=== PATIENT | female | born 1960 | race Caucasian/White ===

== ENCOUNTER 2020-11-14 10:41 | Observation (INO) ==
--- NOTE | 2020-11-14 12:40 | Internal Med History&Physical ---
HPI History of Present Illness Patient information: Note initiated : 11/14/20 at 12:38 pm Service Date, if different from initiated Date: [] Patient: Elma Gonsales a 59 y/o F admitted on 11/14/20 for acute kidney injury. Chief Complaint: [] History of present illness: Ms. Gonsales is a 59 year old F Patient was admitted to [facility] for UTI nausea vomiting acute kidney injury. Patient reports onset of nausea vomiting several nights ago with right abdominal pain when to the ED diagnosed with UTI sent home. Came back to the ED with severe right flank pain sharp rating to the groin. She had a CT which showed obstructing stone on the right with hydronephrosis and perinephric edema. She was admitted as the thought that urologist available the next day but they did not. Patient does transfer down to [facility] for Dr. Leal. Patient denies fever but has chills. Review of Systems: Pertinent positives as above. Denies headache/fever/chills/chest pain/cough/dyspnea/diarrhea. Remaining 10 point review of system reviewed negative PFSH PFSH All Active Problems (Updated 10/17/15 @ 14:00 by Matthias Person MD) Fibromyalgia (Chronic) Arthralgia (Chronic) Depression (Chronic) Obstructive sleep apnea (Chronic) Insomnia (Chronic) DM type 2 (diabetes mellitus, type 2) (Chronic) Diarrhea (Chronic) Viral illness (Chronic) Fatigue (Chronic) Medical History (Updated 10/17/15 @ 14:00 by Matthias Person MD) Arthralgia Depression Diarrhea DM type 2 (diabetes mellitus, type 2) Fatigue Fibromyalgia Insomnia Obstructive sleep apnea Viral illness Surgical History (Updated 06/14/20 @ 08:26 by [place]) No pertinent past surgical history Family History (Updated 09/06/15 @ 10:01 by Marycarmen Omalley) Other No pertinent family history MEDS/ALLERGIES Home Medications and Allergies Home Medications Medication Instructions Recorded Confirmed Type atorvastatin 10 mg tablet 10 mg PO QDAY 09/06/15 09/06/15 History blood sugar diagnostic 09/06/15 09/06/15 History bupropion HCl 300 mg 24 hr tablet, 300 mg PO QAM 09/06/15 09/06/15 History extended release desipramine 25 mg tablet 25 mg PO QHS 09/06/15 09/06/15 History fexofenadine 180 mg tablet 180 mg PO QDAY 09/06/15 09/06/15 History insulin human U-100 NPH-regulr 15 unit SUB-Q BID 09/06/15 09/06/15 History 70-30 mix 100 unit/mL subcutaneous susp loratadine 10 mg tablet 10 mg PO QDAY 09/06/15 09/06/15 History metformin 850 mg tablet 850 mg PO BID 09/06/15 09/06/15 History tramadol 50 mg tablet 25 mg PO TID PRN #90 tab 10/17/15 10/17/15 Rx Allergies Allergy/AdvReac Type Severity Reaction Status Date / Time ampicillin Allergy Unknown Hives/Rash Unverified 09/06/15 09:53 aspirin Allergy Unknown Makes nose Unverified 09/06/15 09:53 bleeds worse codeine Allergy Unknown N/V Unverified 09/06/15 09:53 duloxetine Allergy Unknown Confusion Unverified 09/06/15 09:53 gabapentin Allergy Unknown Blurred Unverified 09/06/15 09:53 vision glimepiride Allergy Unknown Itching/Nazario Unverified 09/06/15 09:53 ma lisinopril Allergy Unknown Cough Unverified 09/06/15 09:53 Penicillins Allergy Unknown Hives/Rash Unverified 09/06/15 09:53 prednisone Allergy Unknown Behavioural Unverified 09/06/15 09:53 Disturbances Sulfa (Sulfonamide Allergy Unknown Rash Unverified 09/06/15 09:53 Antibiotics) EXAM Constitutional Exam: General: Alert, Awake, No acute Distress, obesity Eyes/N/T: EOMI, PERRL, Head/Neck: neck supple, normocephalic atraumatic CV: RRR, No murmurs, normal s1/s2 Pulm: Clear b/l, no wheezing/rhonchi/rales Abd: soft, nontender, +BS x4, right flank tenderness to palpation Ext: no clubbing/cyanosis/edema Neuro: Alert, no focal deficits, moves all extremities, CN 2-12 grossly intact, symmetrical strength b/l upper/lower, sensations intact b/l upper/lower Skin: warm/dry A/P Narrative A/P Narrative: A: *Obstructive uropathy w/Right obstructing stone & hydronephrosis *CHARLENE on CKD: 2/2 above *Pyelonephritis: *DM: *Fibromyalgia/depression/anxiety: * P: -Dr. Leal for urology -N.p.o. until procedure -Rocephin pending UC -Basal and SSI -Nurse to clarify and update home medications - -ppx: SCD ambulation Time Spent With Patient Time: Total time spent is greater than 50% in coordination of care (as documented) at patient's floor/unit and/or counseling patient:
[2020-11-14] MEDS ORDERED: DEXTROSE 50% 50 ML VIAL IV PRN (12:58)
[2020-11-14] MEDS ORDERED: IPRATROPIUM/ALBUTEROL 3 ML AMPUL.NEB NEB PRN ×2 (12:58→16:52)
[2020-11-14] MEDS ORDERED: MAGNESIUM SULFATE 2 GM/50 ML BAG IV PRN (12:58)
[2020-11-14] MEDS ORDERED: DEXTROSE 31 GM ORAL.SUSP PO PRN (12:58)
[2020-11-14] MEDS ORDERED: ONDANSETRON 4 MG/2 ML VIAL IV PRN ×2 (12:58→16:52)
[2020-11-14] MEDS ORDERED: METOCLOPRAMIDE 10 MG/2 ML VIAL IV PRN (12:58)
[2020-11-14] MEDS ORDERED: HYDROcodone/APAP 5/325MG TABLET PO PRN (12:58)
[2020-11-14] MEDS ORDERED: POTASSIUM CHLORIDE 20 MEQ TABLET PO PRN ×2 (12:58)
[2020-11-14] MEDS ORDERED: LACTULOSE 20 GM/30 ML ORAL.SOL PO PRN (12:58)
[2020-11-14] MEDS ORDERED: POLYETHYLENE GLYCOL 3350 17 GM PACKET PO PRN (12:58)
[2020-11-14] MEDS ORDERED: POTASSIUM CHLORIDE 40 MEQ in DEXTROSE 5% IN WATER 500 ML IV PRN (12:58)
[2020-11-14] MEDS ORDERED: SENNOSIDES 1 TABLET PO PRN (12:58)
[2020-11-14] MEDS ORDERED: morphine 4 MG/ML VIAL IV PRN (12:58)
[2020-11-14] MEDS ORDERED: 0.9 % SODIUM CHLORIDE 1,000 ML IV SCH (13:00)
[2020-11-14] MEDS ORDERED: cefTRIAXone 1 GM in DEXTROSE 5% IN WATER 50 ML IV SCH (13:00)
[2020-11-14] MEDS: cefTRIAXone 1 GM VIAL IV SCH (13:54)
[2020-11-14] MEDS: 0.9 % SODIUM CHLORIDE 10 ML SYRINGE IV SCH ×2 (14:20→20:48)
--- NOTE | 2020-11-14 14:31 | Urology Consult Note ---
HPI Data of Consult Consult date: 11/14/20 Primary Care Provider: Estefany Camejo MD Consult Narrative Chief complaint: Right flank pain. Reason for consult: Obstructing right renal stone with nonfunctioning left kidney. History of present illness: Elma is a 59-year-old woman who was admitted to [facility] with complaints of urinary tract infection, nausea, emesis and acute urinary injury secondary to an obstructing 9 mm right ureteropelvic junction stone. The patient reports that she has a history of a nonfunctioning left kidney. She is also diabetic. There is no urologist available in [place] and they requested transfer to our hospital for further urologic care. The patient continues to complain of right flank pain and is resting in bed with some discomfort. She reports a history of diabetes mellitus type 2, fibromyalgia, and depression. She has a long history of kidney stones and has had them surgically treated in the past. She has had ureteral stents in the past and reports that these have caused discomfort. She reports that she is allergic to codeine. She is also allergic to penicillin and sulfa medications. cc:: CC: Yoseph Mccullough Review of Systems All systems: reviewed and no additional remarkable complaints except as stated Constitutional Constitutional: Present as per HPI, fatigue and malaise Genitourinary Genitourinary: Present as per HPI and flank pain PFSH PFSH All Active Problems (Updated 11/14/20 @ 14:28 by Michael Leal MD) Solitary right kidney (Acute) Right flank pain (Acute) Hydronephrosis, right (Acute) Renal calculus, right (Acute) Fatigue (Chronic) Viral illness (Chronic) Diarrhea (Chronic) DM type 2 (diabetes mellitus, type 2) (Chronic) Insomnia (Chronic) Obstructive sleep apnea (Chronic) Depression (Chronic) Arthralgia (Chronic) Fibromyalgia (Chronic) Medical History Arthralgia Depression Diarrhea DM type 2 (diabetes mellitus, type 2) Fatigue Fibromyalgia Insomnia Obstructive sleep apnea Viral illness Surgical History No pertinent past surgical history Family History Other No pertinent family history MEDS/ALLERGIES Home Medications and Allergies Home Medications Medication Instructions Recorded Confirmed Type atorvastatin 10 mg tablet 10 mg PO QDAY 09/06/15 11/14/20 History blood sugar diagnostic 09/06/15 09/06/15 History bupropion HCl 300 mg 24 hr tablet, 300 mg PO QAM 09/06/15 09/06/15 History extended release insulin human U-100 NPH-regulr 15 unit SUB-Q BID 09/06/15 09/06/15 History 70-30 mix 100 unit/mL subcutaneous susp metformin 850 mg tablet 850 mg PO DAILY 09/06/15 09/06/15 History tramadol 50 mg tablet 25 mg PO TID PRN #90 tab 10/17/15 10/17/15 Rx Allergies Allergy/AdvReac Type Severity Reaction Status Date / Time Penicillins Allergy Intermediate Other Verified 11/14/20 14:26 Sulfa (Sulfonamide Allergy Unknown Rash Verified 11/14/20 14:26 Antibiotics) prednisone AdvReac Severe Behavioural Verified 11/14/20 14:26 Disturbances codeine AdvReac Intermediate N/V Verified 11/14/20 14:26 glimepiride AdvReac Intermediate Itching/Nazario Unverified 11/14/20 13:06 ma duloxetine AdvReac Mild Confusion Unverified 11/14/20 14:26 gabapentin AdvReac Mild Blurred Unverified 11/14/20 13:06 vision lisinopril AdvReac Mild Cough Unverified 11/14/20 13:06 Physical Examination Vital Signs Vital signs: Temp Pulse Resp BP Pulse Ox 98.2 F 92 H 20 124/75 92 11/14/20 12:58 11/14/20 12:58 11/14/20 12:58 11/14/20 12:58 11/14/20 12:58 General physical appearance General physical exam: well developed, well nourished, moderate pain and obese Eyes Eye exam: PERRL ENT ENT exam: no hearing loss Head Head exam IM: Present atraumatic, normal inspection and normocephalic Neck Neck exam: trachea midline Cardiovascular Cardiovascular exam IM: Present normal rate and rhythm Respiratory Respiratory exam: normal expansion, normal respiratory effort and clear to auscultation Abdomen Abdomen: Present soft and bowel sounds Integumentary Integumentary: Present no rash Neurologic Neurologic: Present normal coordination Psychiatric Psychiatric: Present oriented to time, oriented to person, oriented to place and speech is normal Results Labs Labs: All other labs normal. A/P Assessment and plan (1) Renal calculus, right: Status: Acute (2) Hydronephrosis, right: Status: Acute (3) Right flank pain: Status: Acute (4) Solitary right kidney: Status: Acute Narrative A/P Narrative: Elma is a 59-year-old male with a long history of kidney stones. She was admitted to [facility] with severe right flank pain, nausea, emesis and a CT scan showing an obstructing 9 mm right ureteropelvic junction stone with hydronephrosis. She reports that she has nonfunction of her left kidney making her right kidney her solitary kidney. We discussed that in the presence of a UTI we generally do not treat stones. Instead we simply place a ureteral stent to unblock the kidney, to allow to drain and to help with the severe pain. She understands that a ureteral stent does not treat the stone and may cause irritation such as urinary urgency, frequency and hematuria. She has had stents in the past and understands what stent discomfort can be. We discussed taking her to the operating room today for cystoscopy, right retrograde pyelogram, and right ureteral stent placement. I explained the procedure to the patient as well as its potential risks and complications. Risks include bleeding, infection, damage to the urethra, to the bladder, and to the right ureter and kidney. The risks of postoperative urinary urgency and frequency. The risks of postoperative hematuria she understands that she may have post procedure pain. She understands that placing the stent will not treat the stone and she will need to have the stone treated at a later date once her infection has been cleared. The stent should, however, relieve any of the severe pain that she is currently experiencing including the nausea. Once we placed the stent assuming she is comfortable she can go home with oral pain medication and an oral antibiotic. If she is not comfortable or not able to keep food down we will keep her until she is. She reports that she has an appointment with the urologist in [place] for November 28. It is important that she keep that appointment as they should be able to treat the stone in [place] where she lives. If she would prefer we are always welcome to see her here to schedule her to treat the stone at a later date. She understands that the stent is a temporary device and may remain in place for up to 3 months but not longer without having it removed or exchanged. Her daughter was on the phone for today's consultation. She understands the procedure and the risks and the need for further treatment. A signed consent for was obtained at the bedside today with the nurse present and her daughter on the phone. The plan is to go to the operating for the above procedure this afternoon Time Spent With Patient Time: Total time spent is greater than 50% in coordination of care (as documented) at patient's floor/unit and/or counseling patient:
[2020-11-14] MEDS ORDERED: PROPOFOL 200 MG/20 ML VIAL IV ONE (16:32)
[2020-11-14] MEDS ORDERED: DEXAMETHASONE 10 MG/ML VIAL ONE (16:32)
[2020-11-14] MEDS ORDERED: MIDAZOLAM 2 MG/2 ML VIAL ONE (16:32)
[2020-11-14] MEDS ORDERED: LIDOCAINE HCL/PF 100 MG/5 ML SYRINGE IV ONE (16:32)
[2020-11-14] MEDS ORDERED: fentaNYL 100 MCG/2 ML VIAL IV ONE (16:32)
[2020-11-14] MEDS ORDERED: METHOCARBAMOL 1,000 MG/10 ML VIAL IV PRN (16:52)
[2020-11-14] MEDS ORDERED: PROMETHAZINE 25 MG/ML VIAL IV PRN (16:52)
[2020-11-14] MEDS ORDERED: diphenhydrAMINE 50 MG/ML VIAL IV PRN (16:52)
[2020-11-14] MEDS ORDERED: METOPROLOL TARTRATE 5 MG/5 ML VIAL IV PRN (16:52)
[2020-11-14] MEDS ORDERED: FLUMAZENIL 0.1 MG/ML ML IV PRN (16:52)
[2020-11-14] MEDS ORDERED: ePHEDrine 50 MG/ML AMPUL IV PRN (16:52)
[2020-11-14] MEDS ORDERED: ACETAMINOPHEN 1,000 MG/100 ML BAG IV ONE (16:52)
[2020-11-14] MEDS ORDERED: NALOXONE HCL 0.4 MG/ML VIAL IV PRN (16:52)
[2020-11-14] MEDS ORDERED: fentaNYL 100 MCG/2 ML VIAL IV PRN (16:52)
[2020-11-14] MEDS ORDERED: ATROPINE SULFATE 0.4 MG/ML VIAL IV PRN (16:52)
[2020-11-14] MEDS ORDERED: MEPERIDINE 25 MG/ML VIAL IV PRN (16:52)
[2020-11-14] MEDS ORDERED: LACTATED RINGERS 1,000 ML IV SCH (17:00)
--- NOTE | 2020-11-14 17:01 | Operative Note ---
Brief Operative Note Date of procedure: 11/14/20 Pre-op diagnosis: Right ureteral stone, urinary tract infection, right hydrone phrosis Post-op diagnosis: same Procedure: Cystoscopy, right retrograde pyelogram, and right ureteral stent placement. Grafts/Implants: Yes (6 x 24 cm right ureteral stent with no string.) Anesthesia: GETA Complications: none Surgeon: Michael Leal Estimated blood loss (cc): 0 Specimens Removed/Pathology: none sent Condition: stable Disposition: PACU Operative Note Operative Note: This is a 59-year-old woman with a long history of kidney stones. Currently she has a 9 mm right ureteropelvic junction stone with mild right hydronephrosis, urinary tract infection and a nonfunctioning left kidney. She has severe right flank pain. She is brought to the operating room for cystoscopy, right retrograde pyelogram, and right ureteral stent placement after obtaining informed consent from the patient, she was brought to the operating room was placed upon the operating table. General anesthesia was provided. She was repositioned in a dorsolithotomy position was prepped and draped in usual sterile fashion. Attention was directed to the urethral meatus were 21 Barbadian cystoscope was passed per urethra into the bladder. The bladder was inspected and was seen to be free of tumors and stones. Both right and left orifices were identified in the normal anatomic positions. The right ureteral orifice was cannulated using a 6 Barbadian open and ureteral catheter. A right retrograde pyelogram was performed. This showed no significant hydronephrosis and no ureterectasis. The stone was visualized in the right renal pelvis the open- ended ureteral catheter was removed and the urethra was cannulated on the right using a 0.35 Barbadian Sensor wire. This was easily passed under fluoroscopic guidance into the right upper pole. A 6 x 24 cm ureteral stent with no string was then passed over this wire and under fluoroscopic guidance into the right renal pelvis the wire was removed leaving a good curl in the right renal pelvis and a good curl within the bladder. The bladder was then irrigated and drained. The cystoscope was removed. Lidocaine jelly was placed in the urethra in the bladder. The patient was returned to the supine position. She was awakened and returned to the recovery in stable condition. There were no complications. Blood loss was minimal.
[2020-11-14] MEDS: INSULIN LISPRO 1 UNIT/0.01 ML UNIT SQ SCH ×2 (17:17→20:58)
--- NOTE | 2020-11-14 17:49 | XRay Report ---
HISTORY: FINDINGS: IMPRESSION: 0.5 minutes of fluoroscopy time was used. Interpreted and Authenticated by: Db Ramon 11/14/20
[2020-11-14] MEDS ORDERED: LIDOCAINE 2% URO-JET 5 ML JEL.PF.APP UR ONE (18:21)
[2020-11-14] MEDS ORDERED: IOVERSOL 20 ML VIAL IV ONE (18:21)
--- NOTE | 2020-11-14 19:07 | Discharge Summary ---
Discharge Provider Provider Patient information: Note initiated : 11/14/20 at 7:05 pm Service Date, if different from initiated Date: [] Patient: Elma Gonsales 59 y/o F admitted on 11/14/20 for acute kidney injury. Chief Complaint: [] Date of admission: 11/14/20 12:29 Discharge date: 11/15/20 Primary care physician: Estefany Camejo MD Consults: 11/14/20 Consult to Physician [CONS] Urgent Comment: Consulting Provider: Michael Leal Reason For Exam: Physician to Consult Discharge Meds Discharge Medications Home Medications atorvastatin 10 mg tablet 10 mg PO QDAY 09/06/15 [History Confirmed 11/14/20 Last Taken 11/13/20] blood sugar diagnostic 09/06/15 [History Confirmed 09/06/15 Last Taken Unknown] bupropion HCl 300 mg 24 hr tablet, extended release 300 mg PO QAM 09/06/15 [History Confirmed 11/14/20 Last Taken Unknown] insulin human U-100 NPH-regulr 70-30 mix 100 unit/mL subcutaneous susp 18 unit SUB-Q BID 09/06/15 [History Confirmed 11/14/20 Last Taken Unknown] tramadol 50 mg tablet 25 mg PO TID PRN #90 tab 10/17/15 [Rx Confirmed 11/14/20 Last Taken Unknown] Victoza 3-Leonel 1.8 mg SUBCUT Q24H 11/14/20 [History Confirmed 11/14/20 Last Taken Unknown] levofloxacin 750 mg PO Q24H #5 tab 11/14/20 [Rx Last Taken Unknown] metformin 750 mg PO QDAY 11/14/20 [History Confirmed 11/14/20 Last Taken Unknown] COURSE Hospital Course Hospital course: History of present illness: Ms. Gonsales is a 59 year old F Patient was admitted to [facility] for UTI nausea vomiting acute kidney injury. Patient reports onset of nausea vomiting several nights ago with right abdominal pain when to the ED diagnosed with UTI sent home. Came back to the ED with severe right flank pain sharp rating to the groin. She had a CT which showed obstructing stone on the right with hydronephrosis and perinephric edema. She was admitted as the thought that urologist available the next day but they did not. Patient does transfer down to [facility] for Dr. Leal. Patient denies fever but has chills. 11/15 Status post right stent yesterday slept well. Feeling well. Ready for discharge. Will order follow-up renal function A: *Obstructive uropathy w/Right obstructing stone & hydronephrosis: s/p Right Ureteral stent *CHARLENE on CKD: 2/2 above *Pyelonephritis: *DM: *Fibromyalgia/depression/anxiety: * Discharge diagnosis: Obstructive uropathy with a right obstructing stone hydronephrosis CHARLENE Secondary discharge diagnosis: Pyelonephritis diabetes fibromyalgia depression anxiety Time Spent with Patient Time attestation: Total time spent providing and/or coordinating discharge services: Time spent: Greater than 30 minutes EXAM Constitutional Vitals: Temp Pulse Resp BP Pulse Ox 97.9 F 74 18 109/66 95 11/14/20 17:41 11/14/20 18:40 11/14/20 17:41 11/14/20 18:40 11/14/20 18:40 Discharge Plan Patient/Caregiver Discharge Instructions Activity: increase activity as tolerated Diet: Consistent Carbohydrate Activity Restrictions/Additional Instructions: Follow-up with Dr. Leal or local urologist Prescriptions: New levofloxacin 750 mg tablet 750 mg PO Q24H Qty: 5 RF: 0 Continued atorvastatin [Lipitor] 10 mg tablet 10 mg PO QDAY RF: 0 insulin NPH and regular human [Novolin 70/30 U-100 Insulin] 100 unit/mL (70- 30) suspension 18 unit SUB-Q BID RF: 0 (DME) blood sugar diagnostic [Truetest Test Strips] strip See Dose Instructions .ROUTE .MEDSUPPLY RF: 0 bupropion HCl 300 mg tablet extended release 24 hr 300 mg PO QAM RF: 0 tramadol 50 mg tablet 25 mg PO TID PRN (Reason: pain) Qty: 90 RF: 0 metformin 750 mg Tablet Extended Release 24 Hr 750 mg PO QDAY RF: 0 Victoza 3-Leonel 0.6 mg/0.1 mL (18 mg/3 mL) Pen Injector 1.8 mg SUBCUT Q24H RF: 0 Other Ambulatory Orders: Basic Metabolic Panel (Routine) Timeframe: 3 Days Facility: [facility] - Location: Laboratory Ordered By: Yoseph Badillo Follow Up Plan Follow up with: Michael Leal MD [Physician] - Patient Disposition: Home, Self-Care Prognosis: Good Overall status at discharge: patient is progressing back to baseline Discharge Orders: Discharge Order (Routine); Ordered 11/15/20 [facility] Deep Vein Thrombosis/Pulmonary Embolism Present on Admission: No
[2020-11-14] MEDS: INSULIN 70/30, HUMAN 1 UNIT/0.01 ML UNIT SQ SCH (20:42)
[2020-11-14] MEDS: DOCUSATE SODIUM 100 MG CAPSULE PO SCH (20:43)
[2020-11-14] MEDS ORDERED: 0.9 % SODIUM CHLORIDE 10 ML SYRINGE IV SCH (22:00)
[2020-11-15] MEDS: ACETAMINOPHEN 325 MG TABLET PO PRN ×2 (00:47→09:11)
[2020-11-15] MEDS: 0.9 % SODIUM CHLORIDE 10 ML SYRINGE IV SCH ×2 (04:06→13:39)
[2020-11-15 06:32] LABS: Basophils # (Auto) 0.01 K/mcL (0.00-0.20); Basophils % (Auto) 0.1 % (0.0-2.0); Eosinophils # (Auto) 0 K/mcL (0.00-0.70); Eosinophils % (Auto) 0 % (0.0-7.0); Hematocrit 38.7 % (36.0-48.0); Hemoglobin 12.1 g/dL (12.0-15.0); Lymphocytes # (Auto) 0.98 K/mcL (1.50-4.80); Lymphocytes % (Auto) 6.1 % (15.0-49.0); Mean Cell Volume 88.2 fL (80.0-100.0); Mean Corpuscular HGB Conc 31.3 g/dL (31.0-36.0); Mean Platelet Volume 10.3 fL (7.4-10.4); Monocytes # (Auto) 0.33 K/mcL (0.10-0.90); Monocytes % (Auto) 2.1 % (1.0-12.0); Neutrophils % (Auto) 91.7 % (38.0-78.0); Platelet Count 288 K/mcL (140-440); RBC 4.39 M/mcL (4.00-5.20); Red Cell Distribution Width 14.3 % (11.5-14.5)
[2020-11-15 06:59] LABS: ALT/SGPT 18 U/L (<40); AST/SGOT 19 U/L (<32); Albumin 3.3 gm/dL (3.2-5.2); Albumin/Globulin Ratio 0.9 (1.0-2.3); Alkaline Phosphatase 72 U/L (39-117); Bilirubin,Direct < 0.2 mg/dL (0-0.3); Bilirubin,Total 0.2 mg/dL (0.1-1.0); Blood Urea Nitrogen 20 mg/dL (6-20); Calcium 8.6 mg/dL (8.6-10.4); Carbon Dioxide 21 mmol/L (22-30); Chloride 103 mmol/L (96-108); Globulin 3.5 gm/dL (2.2-3.7); Glomerular Filtration Rate 41; Glucose 219 mg/dL (70-105); Lactate Dehydrogenase 230 U/L (135-225); Phosphorous 3.2 mg/dL (2.5-4.5); Triglycerides 98 mg/dL (<150); Uric Acid 4.2 mg/dL (2.5-8.0)
[2020-11-15] MEDS: INSULIN 70/30, HUMAN 1 UNIT/0.01 ML UNIT SQ SCH (07:58)
[2020-11-15] MEDS: DOCUSATE SODIUM 100 MG CAPSULE PO SCH (07:58)
[2020-11-15] MEDS: INSULIN LISPRO 1 UNIT/0.01 ML UNIT SQ SCH ×2 (07:58→11:36)
[2020-11-15] MEDS ORDERED: METFORMIN 750 MG PO SCH (08:00)
[2020-11-15] MEDS ORDERED: ATORVASTATIN 10 MG TABLET PO SCH (09:00)
[2020-11-15] MEDS ORDERED: buPROPion 150 MG TAB.XL.24H PO SCH (09:00)
[2020-11-15] MEDS: cefTRIAXone 1 GM VIAL IV SCH (09:11)
--- NOTE | 2020-11-16 17:43 | EKG ---
[facility] Test Date: 2020-11-14 Pat Name: Elma Gonsales Department: [facility] Room: 131 Gender: Female Warp Preparer: : 1960 Requested By: Tatianna Shields Order Number: [id number] Reading MD: Justin Lopez M.D. Measurements Intervals [place] Rate: 80 P: 28 SC: 176 QRS: 21 QRSD: 82 T: 49 QT: 380 QTc: 439 Interpretive Statements SINUS RHYTHM NO TRACING FOUND IN [employer] NORMAL TRACING Electronically Signed On 11-16-2020 17:43:06 PDT by Justin oLpez M.D. /store/[id number]
== END 2020-11-15 14:50 | disposition home or self-care (01) ==
LOC: MEDSUR
PROVIDERS: ADMIT Internal Medicine; ATTEND Internal Medicine